=== PATIENT | female | born 1985 | race Caucasian/White ===

== ENCOUNTER → 2020-07-28 | Outpatient (CLI) | payer OTHER ==
--- NOTE | 2020-07-29 09:29 | RAD ---
Single radiograph abdomen. Single radiograph pelvis. 2 radiographs left hip. Indication: LLQ PAIN, LEFT HIP PAIN Comparison: None Impression: Bowel gas pattern nonspecific. No obstruction. No appreciable renal stones. No acute fracture of the pelvis or left hip identified. No advanced osteoarthritis of the hips. Mild pubic symphysis osteoarthritis. Electronically signed by: Jules Fitzgerald MD 07/29/2020 9:27 AM [facility]
--- NOTE | 2020-07-29 09:29 | RAD ---
Single radiograph abdomen. Single radiograph pelvis. 2 radiographs left hip. Indication: LLQ PAIN, LEFT HIP PAIN Comparison: None Impression: Bowel gas pattern nonspecific. No obstruction. No appreciable renal stones. No acute fracture of the pelvis or left hip identified. No advanced osteoarthritis of the hips. Mild pubic symphysis osteoarthritis. Electronically signed by: Jules Fitzgerald MD 07/29/2020 9:27 AM [facility]
--- NOTE | 2020-07-29 09:29 | RAD ---
Single radiograph abdomen. Single radiograph pelvis. 2 radiographs left hip. Indication: LLQ PAIN, LEFT HIP PAIN Comparison: None Impression: Bowel gas pattern nonspecific. No obstruction. No appreciable renal stones. No acute fracture of the pelvis or left hip identified. No advanced osteoarthritis of the hips. Mild pubic symphysis osteoarthritis. Electronically signed by: Jules Fitzgerald MD 07/29/2020 9:27 AM [facility]
== END ==
LOC: RAD 15:26
PROVIDERS: ATTEND Nurse Practitioner Family
DX: R10.32 Left lower quadrant pain (principal); M19.90 Unspecified osteoarthritis, unspecified site; M25.552 Pain in left hip

== ENCOUNTER → 2020-08-12 | Outpatient (CLI) | payer OTHER ==
--- NOTE | 2020-08-12 15:40 | CT ---
EXAM DESCRIPTION: CT ABDOMEN AND PELVIS WITH CONTRAST CLINICAL HISTORY: LLQ PAIN COMPARISON: None Available. TECHNIQUE: CT of the abdomen and pelvis are performed after IV contrast administration. No oral contrast was given. Multiplanar reconstructions were obtained. FINDINGS: The lung bases are unremarkable. The liver is normal in contour and enhancement. The gallbladder is unremarkable without calcified gallstone. No biliary ductal dilatation. Partially decompressed gastric fundus. No significant hiatal hernia. The spleen is normal in size. The pancreas and adrenals enhance normally. The kidneys are normal in size and contour. No hydronephrosis or nephrolithiasis. Mild to moderate colonic diverticulosis (involving the transverse, descending and sigmoid colon) without acute diverticulitis. No focal bowel wall thickening or bowel obstruction. The appendix is normal. Tiny fat-containing umbilical hernia measuring 1.7 cm. There is a small left fat-containing indirect hernia measuring approximately 2.3 x 0.9 cm (series 2 image 73, coronal image 41). No bowel involvement. There is no lymphadenopathy, inflammation, or free fluid observed. No free air. The bladder is unremarkable. The uterus is surgically absent. No acute osseous abnormality. IMPRESSION: 1. Small left fat-containing inguinal hernia. 2. Moderate colonic diverticulosis without acute diverticulitis. 3. Tiny fat-containing umbilical hernia. 4. Hysterectomy. This exam was performed according to our departmental dose-optimization program, which includes automated exposure control, adjustment of the mA and/or kV according to patient size and/or use of iterative reconstruction technique. Electronically signed by: Guzman Hatch DO 08/12/2020 3:38 PM [facility]
== END ==
LOC: CT 07:57
PROVIDERS: ATTEND Nurse Practitioner Family
DX: Z01.812 Encounter for preprocedural laboratory examination (principal); K57.30 Diverticulosis of large intestine without perforation or abscess without bleeding; K42.9 Umbilical hernia without obstruction or gangrene; K40.90 Unilateral inguinal hernia, without obstruction or gangrene, not specified as recurrent; Z90.710 Acquired absence of both cervix and uterus